=== PATIENT | female | born 1985 | race Two or more races ===

== ENCOUNTER 2021-09-14 11:45 | Outpatient (CLI) | payer OTHER | END 2021-09-14 12:45 | disposition home or self-care (01) | LOC: PRENATAL 11:45 | PROVIDERS: ATTEND Obstetrics & Gynecology Maternal & Fetal Medicine | DX: Z03.79 Encounter for other suspected maternal and fetal conditions ruled out (principal) ==

== ENCOUNTER 2021-09-28 08:32 | Outpatient (CLI) | payer OTHER | END 2021-09-28 09:50 | disposition home or self-care (01) | LOC: PRENATAL 08:32 | PROVIDERS: ATTEND Obstetrics & Gynecology Maternal & Fetal Medicine | DX: O36.80X0 Pregnancy with inconclusive fetal viability, not applicable or unspecified (principal); O09.529 Supervision of elderly multigravida, unspecified trimester; O34.10 Maternal care for benign tumor of corpus uteri, unspecified trimester; Z3A.13 13 weeks gestation of pregnancy ==

== ENCOUNTER 2021-11-20 08:23 | Outpatient (CLI) | payer OTHER | END 2021-11-20 10:35 | disposition home or self-care (01) | LOC: PRENATAL 08:23 | PROVIDERS: ATTEND Obstetrics & Gynecology Maternal & Fetal Medicine | DX: O35.9XX0 Maternal care for (suspected) fetal abnormality and damage, unspecified, not applicable or unspecified (principal); O35.3XX0 Maternal care for (suspected) damage to fetus from viral disease in mother, not applicable or unspecified; O09.529 Supervision of elderly multigravida, unspecified trimester; O09.219 Supervision of pregnancy with history of pre-term labor, unspecified trimester; Z3A.21 21 weeks gestation of pregnancy ==

== ENCOUNTER 2022-01-08 09:38 | Outpatient (CLI) | payer OTHER | END 2022-01-08 12:23 | disposition home or self-care (01) | LOC: PRENATAL 09:38 | PROVIDERS: ATTEND Obstetrics & Gynecology Maternal & Fetal Medicine | DX: O26.849 Uterine size-date discrepancy, unspecified trimester (principal); O09.219 Supervision of pregnancy with history of pre-term labor, unspecified trimester; Z3A.28 28 weeks gestation of pregnancy ==

== ENCOUNTER 2022-03-05 08:46 | Outpatient (CLI) | payer OTHER | END 2022-03-05 09:54 | disposition home or self-care (01) | LOC: PRENATAL 08:46 | PROVIDERS: ATTEND Obstetrics & Gynecology Maternal & Fetal Medicine | DX: O26.849 Uterine size-date discrepancy, unspecified trimester (principal); O36.8199 Decreased fetal movements, unspecified trimester, other fetus; Z3A.36 36 weeks gestation of pregnancy ==

== ENCOUNTER 2022-03-26 13:00 | Inpatient (IN) | payer OTHER ==
[~2022-03-26] VITALS: Ht 162.6 cm; Wt 107.0 kg
[2022-03-30] MEDS ORDERED: DIALYVITE 800-1 EACH PO (06:57)
[2022-03-30] MEDS ORDERED: PRENATAL + DHA1 EAC1 PO (06:57)
[2022-03-30] MEDS ORDERED: OMEGA-31000 MG PO (06:58)
== END 2022-04-01 16:53 | DRG 807 ==
LOC: LDR 03-30 05:39 → OB/GYN 03-30 05:39
PROVIDERS: ADMIT Specialist; ATTEND Specialist
PROC: 10E0XZZ Delivery of Products of Conception, External Approach (ICD-10-PCS; principal; 2022-03-30)
PROC: 4A1HXCZ Monitoring of Products of Conception, Cardiac Rate, External Approach (ICD-10-PCS; 2022-03-30)
DX: O99.824 Streptococcus B carrier state complicating childbirth (principal); Z37.0 Single live birth; Z3A.39 39 weeks gestation of pregnancy; Z20.822 Contact with and (suspected) exposure to COVID-19

== ENCOUNTER 2024-07-16 14:03 | Outpatient (CLI) | payer OTHER ==
[~2024-07-16 14:03] MED LIST: DIALYVITE 800-1 EACH PO; OMEGA-31000 MG PO; PRENATAL + DHA1 EAC1 PO
== END 2024-07-16 14:04 | disposition home or self-care (01) ==
LOC: PRENATAL 14:03
PROVIDERS: ATTEND Obstetrics & Gynecology Maternal & Fetal Medicine
DX: O36.80X0 Pregnancy with inconclusive fetal viability, not applicable or unspecified (principal); O28.3 Abnormal ultrasonic finding on antenatal screening of mother; Z3A.10 10 weeks gestation of pregnancy

== ENCOUNTER 2024-07-24 06:40 | Day surgery (SDC) | payer OTHER ==
[2024-07-24 07:55] LABS: BASO % 0.1 % (0.1-1.2); EOS % 1.3 % (0.7-7.0); HEMATOCRIT 35.9 % (34.1-44.9); HEMOGLOBIN 11.8 g/dL (11.2-15.7); LYMPH # 1.94 (1.18-3.74); LYMPH % 24.5 % (19.3-53.1); MEAN CORPUSCULAR HEMOGLOBIN 27.4 pg (25.6-32.2); MONO % 5.1 % (4.7-12.5); NEUT # 5.42 (1.56-6.13); NEUT % 68.5 % (34.0-71.1); PLATELET COUNT 207 K/uL (163-369); RED CELL DISTRIBUTION WIDTH 12.8 % (11.6-14.4)
[2024-07-24 08:02] LABS: PH,URINE 7.5 (5.0-8.0); URINE APPEARANCE Clear; URINE BILIRRUBIN Negative (NEGATIVE); URINE BLOOD NHT; URINE COLOR Yellow; URINE GLUCOSE Negative (NEGATIVE); URINE KETONE Negative (NEGATIVE); URINE LEUKOCYTE Small; URINE NITRATE Negative; URINE PROTEIN Negative (NEGATIVE); URINE UROBILINOGEN 0.2 E.U./dl
[2024-07-24 08:07] LABS: URINE BACTERIA 140.7 uL (0.0-1933); URINE EPITHELIAL CELLS 10.1 uL (0.0-38.8); URINE RBC 14.1 uL (0.0-20.8); URINE WBC 9.4 uL (0.0-23.2)
[2024-07-24 08:27] LABS: INR 0.96; PARTIAL THROMBOPLASTIN TIME 28.5 SECONDS (22.0-34.0); PROTHROMBIN TIME 10.5 SECONDS (9.0-11.5)
[2024-07-24 08:56] LABS: ALBUMIN 3.7 gm/dL (3.4-5.0); BILIRUBIN TOTAL 0.53 mg/dL (0.3-1.2); CALCIUM 9.2 mg/dL (8.5-10.1); CREATININE SERUM 0.56 mg/dL (0.55-1.02); GFR 119.9; GLOBULINA 4.1 G/DL (2.4-3.5); POTASSIUM 3.68 mEq/L (3.5-5.1); TOTAL PROTEIN 7.8 gm/dL (6.4-8.2)
[2024-07-24] MEDS ORDERED: CEFAZOLIN SODIUM 1,000 MG VIAL ONE (09:31)
[2024-07-24] MEDS ORDERED: POVIDONE-IODINE 118 ML BOTT TOP ONE (11:01)
[2024-07-24] MEDS ORDERED: OXYTOCIN 10 UNITS/ML VIAL ONE (11:01)
== END 2024-07-24 17:55 | disposition home or self-care (01) ==
LOC: CIR.AMB 06:40
PROVIDERS: ATTEND Specialist
DX: O02.1 Missed abortion (principal)

== ENCOUNTER 2024-12-14 12:58 | Outpatient (CLI) | payer OTHER | END 2024-12-14 12:59 | disposition home or self-care (01) | LOC: PRENATAL 12:58 | PROVIDERS: ATTEND Obstetrics & Gynecology Maternal & Fetal Medicine | DX: O36.80X0 Pregnancy with inconclusive fetal viability, not applicable or unspecified (principal); O26.859 Spotting complicating pregnancy, unspecified trimester; Z3A.01 Less than 8 weeks gestation of pregnancy ==

== ENCOUNTER 2024-12-18 08:00 | Day surgery (SDC) | payer OTHER ==
[2024-12-17 16:16] LABS: BASO % 0.1 % (0.1-1.2); EOS # 0.13 (0.04-0.54); EOS % 1.4 % (0.7-7.0); LYMPH # 2.63 (1.18-3.74); LYMPH % 27.4 % (19.3-53.1); MEAN PLATELET VOLUME 10.70 fl (9.4-12.4); MONO # 0.59 (0.24-0.82); MONO % 6.1 % (4.7-12.5); NEUT # 6.20 (1.56-6.13); NEUT % 64.6 % (34.0-71.1); RED CELL DISTRIBUTION WIDTH 13.2 % (11.6-14.4); URINE APPEARANCE Clear; URINE BILIRRUBIN Negative (NEGATIVE); URINE BLOOD Small; URINE COLOR Yellow; URINE GLUCOSE Negative (NEGATIVE); URINE KETONE Negative (NEGATIVE); URINE LEUKOCYTE Negative; URINE NITRATE Negative; URINE PROTEIN Negative (NEGATIVE); URINE UROBILINOGEN 0.2 E.U./dl
[2024-12-17 16:35] LABS: URINE BACTERIA FEW; URINE EPITHELIAL CELLS 0-4 /HPF; URINE RBC 0-3 /HPF; URINE WBC 0-2 /hpf
[2024-12-17 16:44] LABS: INR 1.01
[2024-12-17 16:58] LABS: ALT/SGPT 21.0 U/L (12-78); AST/SGOT 14.0 U/L (15-37); BILIRUBIN TOTAL 0.36 mg/dL (0.3-1.2); BUN CREA RATIO 15.0 (7.0-25.0); CREATININE SERUM 0.65 mg/dL (0.55-1.02); GFR 100.95; GLOBULINA 4.1 G/DL (2.4-3.5); GLUCOSE FASTING 92.0 mg/dL (65-100); OSMOLALITY SERUM 280.0 MOSM/KG (275-295)
[2024-12-18] MEDS ORDERED: OXYTOCIN 10 UNITS/ML VIAL ONE (10:59)
[2024-12-18] MEDS ORDERED: POVIDONE-IODINE 118 ML BOTT TOP ONE (11:45)
[2024-12-18] MEDS ORDERED: CEFAZOLIN SODIUM 1,000 MG VIAL IV SCH (11:45)
== END 2024-12-18 15:40 | disposition home or self-care (01) ==
LOC: CIR.AMB 08:00
PROVIDERS: ATTEND Specialist
DX: O02.1 Missed abortion (principal)